=== PATIENT | male | born 1945 | race Caucasian/White ===

== ENCOUNTER 2018-06-12 10:47 | Day surgery (SDC) | payer MEDICARE ==
--- NOTE | 2018-06-05 11:57 | NUR ---
PT ATE AT 0900 TODAY. IS CANCELLED AND REVIEWED NPO WITH PT. GAVE PAPER FROM DR OFFICE WITH JIMMY AND NPO TO PT.
[~2018-06-12] VITALS: Ht 172.7 cm; Wt 57.4 kg
[~2018-06-12 10:47] MED LIST: CARTIA XT120 MG PO; COUMADIN2.5 MG PO; INSPRA25 MG PO; LANTUS SOL100 UNIT/1 SUB-Q; LIPITOR40 MG PO; TRIAMCINOLONE A15 G1 TOP; VENTOLIN HFA18 GM; ZYLOPRIM100 MG PO
--- NOTE | 2018-06-12 12:54 | NUR ---
06/12/18 Raul4 Ihsan Thakur REPOSITIONED PT ON LEFT SIDE FOR COMFORT ON ENTRY TO PACU PRE OP REPORTS FROM RN STATES PT WAS NOT COMFORTABLE LAYING ON HIS FRONT. RESPONDS TO TAP AND VOICE. DENIES NAUSEA OR PAIN. FALLS ASLEEP EASILY.
== END 2018-06-12 13:33 | disposition home or self-care (01) ==
LOC: OPS 10:47
PROVIDERS: Specialist
PROC: 079T3ZX Drainage of Bone Marrow, Percutaneous Approach, Diagnostic (ICD-10-PCS; 2018-06-12)
PROC: 07DR3ZX Extraction of Iliac Bone Marrow, Percutaneous Approach, Diagnostic (ICD-10-PCS; principal; 2018-06-12 12:00)
DX: C90.00 Multiple myeloma not having achieved remission (principal); I12.9 Hypertensive chronic kidney disease with stage 1 through stage 4 chronic kidney disease, or unspecified chronic kidney disease; E11.22 Type 2 diabetes mellitus with diabetic chronic kidney disease; N18.3 Chronic kidney disease, stage 3 (moderate); D63.1 Anemia in chronic kidney disease; Z79.899 Other long term (current) drug therapy
CPT/HCPCS: 80053; 82232; 83615; 85025; 88184; 88185; 88305; 88311; 88313; 88360; 88364; 88365; 99152; 99153; J2250; J3010; J7120